=== PATIENT | female | born 1985 | race Caucasian/White ===

== ENCOUNTER 2016-07-07 05:56 | Day surgery (SDC) | payer OTHER ==
[2016-07-07] VITALS (9 sets, daily range): BP systolic 112–142; BP diastolic 64–88; PULSE 47–69; RESP 12–16; O2SAT 96–100
[~2016-07-07] VITALS: Ht 162.6 cm; Wt 77.1 kg
[~2016-07-07 05:56] MED LIST: ASCO100089 PO; PREN1TAB87 PO
[2016-07-07] MEDS ORDERED: fentaNYL-PF 50 mCg/mL 2 mL Inj ONE (05:57)
[2016-07-07] MEDS ORDERED: Dexamethasone 4 mg/mL Inj ONE (05:57)
[2016-07-07] MEDS ORDERED: Rocuronium 10 mg/mL 5 mL Inj ONE (05:57)
[2016-07-07] MEDS ORDERED: Succinylcholine Chloride 20 mg/mL 5 mL Inj ONE (05:57)
[2016-07-07] MEDS ORDERED: Propofol 10,000 mCg/mL 20 mL Inj ONE (05:57)
[2016-07-07] MEDS ORDERED: Ondansetron 2 mg/mL 2 mL Inj ONE (05:57)
[2016-07-07] MEDS ORDERED: Neostigmine 1 mg/mL 5 mL Inj ONE (05:57)
[2016-07-07] MEDS ORDERED: Glycopyrrolate 0.2 mg/mL 5 mL Inj ONE (05:57)
[2016-07-07] MEDS: Lactated Ringer's 1,000 ML IV SCH ×2 (06:07→07:23)
--- NOTE | 2016-07-07 07:25 | PCM.HPANE ---
Patient Data Surgeon Admitting Provider: Attending Provider:Naveen Slater MD Primary Care Physician:Moise Donaldson MD Other Provider:[facility] Reason for Visit Desired Sterilization Ht/WT & BMI Height (Feet): 5 Height (Inches): 4 Weight (Kilograms): 77.1 Body Mass Index 29.00 Allergies Coded Allergies: latex (Verified Allergy, Unknown, UNKNOWN, 07/05/16) Past Anesthesia History Anesthesia History: Denies:: Anesthesia Reactions, Malignant Hyperthermia Diabetes History Hx Diabetes?: No Type of Diabetes: Diet Controlled Glycemic Control: Diet Controlled MRSA MRSA: No Medications Hypertension Medication: No Home Meds Incl Beta Melia: No Reported Medications Ascorbic Acid (Vitamin C)1,000 Mg Tab.chew1,000 Mg PO DAILY PRN HEALTH Ref 0 07/05/16 Vit W-Ca,Fe,FA(<1 mg) ( Vitamins)1 Each Tablet1 Each PO DAILY 07/05/16 Discontinued Reported Medications Vit/Fe Fumarate/Fa-Expunged Drug, Do (-Expunged Drug, Do Not Renew!)1 Each Tablet1 Each PO DAILY 05/22/11 Discontinued Scripts Ibuprofen 600 Mg [id number] Mg PO Q6H PRN For Mild Pain #14 TABLET Prov:Moise Donaldson MD 04/18/16 History History of ENT Problems?: No Hx of Heart Problems?: No Cardiovascular History: Denies:: Heart Murmur Hypertension Hx of Respiratory Problem?: No Respiratory History: Denies:: Use of C-PAP Machine Hx Neurologic Problems?: Yes Hx of GI Problems?: No Hx of Problems?: No Female Hx: Denies:: Currently (NEG PREG TEST) Skin History: Denies:: History Skin Disorders? Pressure Ulcers Hx Musculoskeletal Problems?: No Hx of Psycho/Social Problems?: Yes Psycho Social History: Positive for:: Hx Depression Hx Surgeries?: Yes (LEEP PROCEDURE) Hx Any Other Health Problems?: Yes Other History: Positive for:: Hospitalization ([facility]) Denies:: Cancer Endocrine Disease Thyroid Disease History Blood Transfusions: Denies:: Blood Transfusions Hx Diabetes: No Hx Alcohol Use: NoHx Substance Use: No Smoking Status: Unknown if Ever Smoker Have You Smoked inLast 12 mo: YesApprox How Many Cigarettes/day: 5 C/DAY Stop/Bang S-Snoring: Do You Snore Loudly: No T-Tired: feel tired, fatigued: Yes O-Obsered: Observed not breath: No P-Blood Pressure: treated: No B- Body Mass Index > 35 kg/m2: No A- Age over 50: No N- Neck Large Circumference: No G- Gender Male: No MARGO Total Score: 1 MARGO Risk Assessment: Low Risk, <3 Yes Risk Assessment Category Category 1A: Patient has history of documented sleep apnea, and HAS NOT received any narcotic, sedative or anesthesia administration during this stay. Category 1B: Patient has history of documented sleep apnea, and HAS received any narcotic , sedative or anesthesia administration during this stay Category 2: Patient has SUSPECTED Obstructive Sleep Apnea, and HAS received any narcotic , sedative or anesthesia administration during this stay. Category 3: Patient has SUSPECTED Obstructive Sleep Apnea and HAS NOT received narcotic, sedative or anesthesia administration during this stay. Category 4: Outpatient in Procedural Areas with known sleep apnea or who screen positive for High Risk via the STOP/BANG questionnaire. Exam Exam Vital Signs Vital Signs Date Time Temp Pulse Resp B/P Pulse Ox O2 Delivery O2 Flow Rate FiO2 07/07/16 06:14 36.0 69 16 112/64 96 Room Air General Appearance: Alert, Oriented X3, Cooperative, No Acute Distress HEENT/AIRWAY: MP 1 Lungs: Clear to Auscultation, Normal Air Movement Heart: Exam Unremarkable, Regular Rate/Rhythm, No Murmurs/Rubs/Gallops Meds/Labs/Diagnostics Admission Meds Current Medications Lactated Ringer's (Lr) 1,000 ml @ 120 mls/hr Q8H20M IV Last administered on t 06:07; Start 07/07/16 at 05:00; Stop 07/07/16 at 13:19 Plan Impression Patient chart reviewed, patient interviewed and anesthestic plan with risks, benefits, and alternatives discussed, and informed consent obtained. NPO Status: 199907/06/16 ASA Physical Status: ASA2 Mod Systemic Disease Anesthetic Plan: GA Bene/Risks/Altern/Consents: Yes HP Complete Prior to Induction: Yes Juan Butcher MD Jul 07, 2016 07:03
[2016-07-07] MEDS ORDERED: Lactated Ringer's 1,000 ML IV SCH (07:37)
[2016-07-07] MEDS ORDERED: Lactated Ringer's 500 ML IV PRN (07:37)
[2016-07-07] MEDS ORDERED: HYDROmorphone 1 mg/mL Inj IVPUSH PRN (07:40)
[2016-07-07] MEDS ORDERED: MetoCLOpramide 5 mg/mL 2 mL Inj IVPUSH PRN ×2 (07:40→08:35)
[2016-07-07] MEDS ORDERED: Ondansetron 2 mg/mL 2 mL Inj IVPUSH PRN (07:40)
[2016-07-07] MEDS ORDERED: fentaNYL-PF 50 mCg/mL 2 mL Inj IVPUSH PRN (07:40)
[2016-07-07] MEDS ORDERED: Labetalol 5 mg/mL 4 mL Inj IV PRN (07:40)
[2016-07-07] MEDS ORDERED: EPHEDrine Sulfate 50 mg/mL Inj IVPUSH PRN (07:40)
[2016-07-07] MEDS ORDERED: hydrALAZINE 20 mg/mL Inj IVPUSH PRN (07:40)
[2016-07-07] MEDS ORDERED: Atropine 0.4 mg/mL Inj IVPUSH PRN (07:40)
[2016-07-07] MEDS ORDERED: Phenylephrine 10,000 mCg/mL Inj IVPUSH PRN (07:40)
[2016-07-07] MEDS ORDERED: Bupivacaine-MPF 0.5% W/EPI 30 mL Inj INFILTRATE ONE (08:00)
--- NOTE | 2016-07-07 08:33 | PCM.DIMED ---
Discharge Instructions Date of Service Jul 07, 2016 Dates of Hospitalization Diet No restrictions Activity No restrictions Call your provider Fever or Chills, Shortness of breath, Bleeding, Chest pain, Vomitting, Excessive diarrhea, Weakness (unilateral) Patient Instructions Follow-up with PCP in: 2 weeks Naveen Slater MD Jul 07, 2016 08:33
[2016-07-07] MEDS ORDERED: diphenhydrAMINE 25 mg Capsule PO PRN (08:35)
[2016-07-07] MEDS ORDERED: HYDROcodone-APAP 5-325 mg Tablet PO PRN (08:35)
--- NOTE | 2016-07-07 08:41 | PCM.ANEP2 ---
Post Anesthesia Evaluation ASA/CMS Post Anesthesia VS in Patient's Normal Range?: Yes Resp Stable; Airway Patent?: Yes CV Function & Hydration Stable: Yes Mental Status Recovered?: Yes Pain control Satisfactory?: Yes N/V Control Satisfactory?: Yes Juan Butcher MD Jul 07, 2016 08:41
--- NOTE | 2016-07-07 08:41 | PCM.ANEP1 ---
Post Anesthesia Phase 1 PACU Phase 1 Assessment Vital Signs Vital Signs Date Time Temp Pulse Resp B/P Pulse Ox O2 Delivery O2 Flow Rate FiO2 07/07/16 08:29 36.1 68 14 140/88 99 Nasal Cannula 2 07/07/16 06:14 36.0 69 16 112/64 96 Room Air Anesthetic Administered: GA Level of Alertness: Awake, talking JOYA's with Equal Strength: Yes Pain: No Nausea or Vomiting: No Oxygen Delivery: Nasal Cannula Lungs: Clear to Auscultation, Normal Air Movement Juan Butcher MD Jul 07, 2016 08:41
--- NOTE | 2016-07-07 11:52 | OP ---
[address] [address] OPERATIVE REPORT PATIENT: JEANETH PETERSEN : 1985 MR#: [id number] ADMIT: 07/07/2016 JOB ID: [id number] DATE OF SURGERY: 07/07/2016 PROCEDURE: Laparoscopic bilateral tubal ligation. PREOPERATIVE DIAGNOSIS(ES): Sterilization. POSTOPERATIVE DIAGNOSIS(ES): Sterilization. SURGEON: Dr. Naveen Slater. ANESTHESIA: General, Dr. Butcher ESTIMATED BLOOD LOSS: 12 mL. ESTIMATED URINE OUTPUT: 5 mL. FLUIDS: 700 mL of lactated Ringer's. COMPLICATIONS: None. PROCEDURE: The patient was brought to the operating room, where she underwent general anesthesia without difficulty. The patient was placed in a dorsal lithotomy position using Link stirrups. She was prepped and draped in the usual surgical fashion. Time-out was performed verifying correct patient, correct procedure. Two Kam retractors were placed in the vagina. The cervix was identified and a Hulka uterine manipulator was placed. Attention was directed to the patient's abdomen where a Veress needle was introduced through the umbilicus and CO2 gas was insufflated until appropriate pneumoperitoneum was achieved. The Veress needle was removed. A 5 mm vertical subumbilical incision was made with a scalpel and a 5 mm trocar was placed. The pelvis was reviewed, the patient was found to have normal uterus and adnexa. A second 5 mm incision of the skin was made in the left lower quadrant 5 cm superior and medial from the anterior-superior iliac spine. A 5 mm trocar was placed through the incision. Using a LigaSure instrument and a Hulka uterine manipulator, the patient's left fallopian tube was ligated in three different spots 3 cm from the cornua of the uterus and 1 cm from each other. A series of images were obtained. The same was done on the patient's contralateral side. All the instruments were removed. The abdomen was desufflated from the CO2 gas. The trocars were removed. The skin incisions were closed with 4-0 Monocryl in subcuticular fashion. Dermabond glue was applied. Hulka uterine manipulator was removed from the uterus. The patient had bleeding from the uterine manipulator insertion site that was addressed with application of one [id number]-[id number] suture using 3-0 Vicryl. The patient was repositioned back into the supine position. She tolerated the procedure well and was transferred to the recovery room in stable condition.
== END 2016-07-07 23:59 | disposition home or self-care (01) ==
LOC: SAS 05:56
PROVIDERS: ATTEND Legal Medicine
DX: Z30.2 Encounter for sterilization (principal); F17.210 Nicotine dependence, cigarettes, uncomplicated
CPT/HCPCS: 58670; J0330; J1100; J1170; J2250; J2405; J2710; J3010; J7120